=== PATIENT | female | born 1995 | race Caucasian/White ===

== ENCOUNTER 2017-08-08 20:45 | Observation (INO) | payer OTHER ==
[2017-08-08 21:02] VITALS: BMI 41.8
--- NOTE | 2017-08-08 21:31 | DR.GENAD ---
HPI - PCP Primary Care Physician: JOSE RIVERS - Complaint/Symptoms Chief Complaint Doctors Comments: Patient states she passed out x2 at home just prior to coming to the emergency room with her blood pressure being elevated with nausea and headache. States she passed out in shower and again afterwards when she was trying to go to her room. States she has been laying around all day and had episode diarrhea but denies cold, cough, fever or chills. States she has a headache earlier today. States they took her blood pressure and it was low normal lying down but dropped to 80/50 when standing. States she is a patient of Dr. Rivers. Chief Complaint:: PT PASSED OUT IN SHOWER; PT C/O BEING N/V ALL DAY; NO ENERGY; HR IS HIGH (128BPM) AND BP IS LOW AT HOME (72/43) Self Treatment fo Chief Complaint: IBUPROFEN FOR HEADACHE;. IMMODIUM FOR DIAHRRHEA. ZOFRAN - Nurses notes reviewed Nurses Notes Review: Yes - Source History Provided: Patient - Mode of Arrival Mode of Arrival: Ambulatory - Timing Onset of Chief Complaint: 08/08/17 Came on: Gradually - Duration Duration: Constant How lon Duration: Days - Location Location: headache - Severity Severity: Mild - Modifying Factors Worsens:: nothing Improves:: nothing PMH - PMH Past Medical History: Yes Past Medical History: Migraines, Hypertension Past Surgical History: No - Family History History of Family Medical Conditions: No - Social History Alcohol Use: None Do you use any recreational Drugs:: No Lives With: Family Lives Where: Home - infectious screening In the last 2 months have you had wt loss of >10#?: NO Have you had fever, night sweats or hemotysis?: No Have you traveled outside the country in the last 6 months?: No Isolation: Standard ROS - Review of Systems Constitutional: No Symptoms Reported, Weakness, Loss of Appetite. negative: See HPI, Chills, Diaphoresis, Fever, Malaise, Irritable, Fatigue, Other Eyes: No Symptoms Reported ENTM: No Symptoms Reported Respiratoy: No Symptoms Reported. negative: See HPI, Productive Cough, Non- Productive Cough, Moist Cough, Dry Cough, Hacking Cough, Barking Cough, Brassy Cough, Orthopnea, Short of Breath, Stridor, Wheezing, Hemoptysis, Other Cardiovascular: No Symptoms Reported, Palpitations, Syncope. negative: See HPI , Chest Pain, Edema, Cyanosis, Skin Mottling, Other Gastrointestinal/Abdominal: No Symptoms Reported, Diarrhea, Nausea. negative: See HPI, Abdominal Pain, Constipation, Vomiting, Food Intolerance, Other Genitourinary: No Symptoms Reported. negative: See HPI, Discharge, Dysuria, Frequency, Hematuria, Pain, Bleeding, Other Neurological: No Symptoms Reported, Headache, Weakness. negative: See HPI, Anxiety, Depressed, Emotional Problems, Numbness, Paresthesia, Pre-existing Deficit, Seizure, Tingling, Tremors, Dizziness, Problems Walking, Speech Problem , Other Musculoskeletal: No Symptoms Reported Integumentary: No Symptoms Reported Hematologic/Lymphatic: No Symptoms Reported Endocrine: No Symptoms Reported Psychiatric: No Symptoms Reported PE - Vital Signs Vitals: Temperature 99.0 F Pulse Rate [Standing] 142 Pulse Rate [Sitting] 135 Pulse Rate [Lying] 109 Pulse Rate 141 Respiratory Rate 20 Blood Pressure [Standing] 116/80 Blood Pressure [Sitting] 118/81 Blood Pressure [Lying] 122/70 Blood Pressure 125/87 O2 Sat by Pulse Oximetry 99 - General Limitations: No Limitations General Appearance: Alert, In No Apparent Distress - Head Head Exam: Normal Inspection, Atraumatic, Normocephalic - Eyes Eye exam: Normal Appearance, PERRL, EOMI. negative: Scleral Icterus, Conjunctival Injection, Nystagmus, Miosis, Mydrasis, Periorbital Swelling, Periorbital Tenderness, Other - ENT ENT Exam: Normal Exam, Normal Oropharynx, Normal External Ear Exam, Mucous Membranes Moist, TM's Normal Bilaterally External Ear Exam: Normal External Inspection TM/Canal Exam: Bilateral Normal Nose Exam: Normal Nose Exam Mouth Exam: Normal Inspection Throat Exam: Normal Inspection. negative: Tonsillar Erythema, Tonsillomegaly, Tonsillar Exudate, R Peritonsillar Mass, L Peritonsillar Mass, Muffled Voice, Other - Neck Neck Exam: Normal Inspection, Full ROM, Trachea Midline. negative: Tenderness, Meningismus, Lymphadenopathy, Thyromegaly, Other - Chest Chest Inspection: Normal Inspection, Symmetric Chest Wall Rise. negative: Tenderness, Rash, Abscess, Other - Respiratory Respiratory Exam: Normal Lung Sounds Bilat. negative: Accessory Muscle Use, Chest Wall Tenderness, Prolonged Expiratory Phase, Respiratory Distress, Stridor , Other Respiratory Exam: Bilateral Clear to Auscultation - Cardiovascular Cardiovascular Exam: Regular Rate, Normal Rhythm, Tachycardia, Normal Heart Sounds. negative: Bradycardia, Irregular Rhythm, Systolic Murmur, Diastolic Murmur, Rubs, Gallop, Clicks, JVD, +S1, +S2, +S3, +S4, Other - Abdominal Exam Abdominal Exam: Normal Inspection, Normal Bowel Sounds, Soft. negative: Distention, Tenderness, Guarding, Rebound, Rigidity, Dimnished Bowel Sounds, Hyperactive Bowel Sounds, Hypoactive Bowel Sounds, Organomegaly, Trauma, Incision, Ascites, Mass, Bruit, Pulsatile Mass, Hernia, Other Abdominal Tenderness: negative: RUQ, RLQ, LUQ, LLQ, Epigastrium, Suprapubic, Diffuse, Mild, Moderate, Severe, Other - Extremities Extremities Exam: Normal Inspection, Full ROM, Normal Capillary Refill. negative: Tenderness, Edema, Joint Swelling, Calf Tenderness, Other - Back Back Exam: Normal Inspection, Full ROM. negative: Tenderness, (R) CVA Tenderness, (L) CVA Tenderness, Muscle Spasm, Paraspinal Tenderness, Vertebral Tenderness, Rashes, (R) Sciatic Notch Tenderness, (L) Sciatic Notch Tendern, (R ) Straight Leg Raise, (L) Straight Leg Raise, Other - Neurologic Neurological Exam: Alert, Oriented X3, CN II-XII Intact, Reflexes Normal. negative: Normal Gait (gait not tested) - Psychiatric Psychiatric Exam: Normal Affect, Normal Mood. negative: Depressed, Agitated, Anxious, Flat Affect, Manic, Homicidal Ideation, Suicidal Ideation, Other - Skin Skin Exam: Warm, Dry, Intact, Normal Color. negative: Rash, Cyanosis, Diaphoresis, Erythema, Pallor, Mottled, Other Course - Reevaluation 1st: Improved - Consultation Called: 00:55 Call Returned: 00:55 (Dr. Patel to admit) - Education/Counseling Education/Counseling: Patient, Family Educated On: Treatment, Diagnosis, Needs for Follow Up ROR - Labs Reviewed Laboratory Results Reviewed?: Yes (All labs and x-ray results reviewed and discussed with patient and mother) Result Diagrams: 08/08/17 22:15 08/08/17 22:15 Laboratory: WBC 8.3 X10^3/uL (3.6-10.0) 08/08/17 22:15 RBC 4.65 X10^6/uL (3.5-5.4) 08/08/17 22:15 Hgb 13.8 g/dL (12.0-16.0) 08/08/17 22:15 Hct 40.1 % (36.0-47.0) 08/08/17 22:15 MCV 86.1 fL (80.0-100.0) 08/08/17 22:15 MCH 29.7 pg (27.0-34.0) 08/08/17 22:15 MCHC 34.4 g/dL (33.0-35.0) 08/08/17 22:15 RDW 14.0 % (11.6-16.5) 08/08/17 22:15 Plt Count 342 X10^3/uL (150.0-450.0) 08/08/17:15 MPV 7.5 fL (7.4-11.0) 08/08/17 22:15 Neut % (Auto) 89.7 % (42.0-75.0) H 08/08/17 22:15 Lymph % (Auto) 7.7 % (21.0-51.0) L 08/08/17 22:15 [place] % (Auto) 2.3 % (0.0-13.0) 08/08/17 22:15 Eos % (Auto) 0.0 % (0.9-2.9) L 08/08/17:15 Baso % (Auto) 0.3 % (0.2-1.0) 08/08/17 22:15 Neut # (Auto) 7.4 x10^3/uL (2.2-4.8) H 08/08/17 22:15 Lymph # (Auto) 0.6 X10^3/uL (1.3-2.9) L 08/08/17 22:15 [place] # (Auto) 0.2 x10^3/uL (0.3-0.8) L 08/08/17 22:15 Eos # (Auto) 0.0 x10^3/uL (0.0-0.2) 08/08/17 22:15 Baso # (Auto) 0.0 X10^3/uL (0.0-0.1) 08/08/17:15 Absolute Nucleated RBC 0.0 /100WBC 08/08/17 22:15 INR Target Range - 08/08/17 22:15 INR 1.09 (0.8-1.3) 08/08/17 22:15 APTT 28.1 SECONDS (22.9-36.5) 08/08/17 22:15 PTT Comment - 08/08/17 22:15 D-Dimer 1670 ng/mL (0-400) H* 08/08/17 22:15 Sodium 139 mmol/L (136-145) 08/08/17 22:15 Corrected Sodium 139 mmol/L (136-145) 08/08/17 22:15 Potassium 4.0 mmol/L (3.5-5.1) 08/08/17 22:15 Chloride 103 mmol/L (98-107) 08/08/17 22:15 Carbon Dioxide 28.0 mmol/L (21-32) 08/08/17 22:15 BUN 7 mg/dL (7-18) 08/08/17 22:15 Creatinine 0.87 mg/dL (0.55-1.02) 08/08/17 22:15 Est GFR (MDRD) Af Amer > 60 (>60) 08/08/17 22:15 Est GFR (MDRD) Non-Af > 60 (>60) 08/08/17 22:15 Glucose 115 mg/dL (65-99) H 08/08/17 22:15 Calcium 8.4 mg/dL (8.5-10.1) L 08/08/17 22:15 Corrected Calcium TNP 08/08/17 22:15 Magnesium 1.5 mg/dL (1.7-2.9) L 08/08/17 22:15 Total Bilirubin 0.50 mg/dL (0.2-1.0) 08/08/17 22:15 AST 15 Units/L (15-37) 08/08/17 22:15 ALT 42 Units/L (12-78) 08/08/17 22:15 Alkaline Phosphatase 84 Units/L (46-116) 08/08/17 22:15 Creatine Kinase 24 Units/L (26-192) L 08/08/17 22:15 CK-MB (CK-2) < 1.0 ng/mL (0-4.0) 08/08/17 22:15 CK/CKMB % Calc 4.2 % (<4) 08/08/17 22:15 Troponin I < 0.02 ng/mL (0-1.5) 08/08/17 22:15 Total Protein 7.9 g/dL (6.4-8.2) 08/08/17 22:15 Albumin 3.4 g/dL (3.4-5.0) 08/08/17 22: Globulin 4.5 g/dL (2.5-4.5) 08/08/17 22: Albumin/Globulin Ratio 0.8 Ratio (1.1-2.1) L 08/08/17 22:15 Thyroxine (T4) 10.3 ug/dL (4.7-13.3) 08/08/17 22: TSH 3rd Generation 1.326 uIU/mL (0.358-3.74) 08/08/17 22:15 HCG, Qual Negative <10 mIU/mL 08/08/17 22:15 Specimen Type Clean catch urine 08/08/17 22:35 Urine Color Yellow (YELLOW) 08/08/17 22:35 Urine Appearance Clear (CLEAR) 08/08/17 22:35 Urine pH 6.0 (5.0 - 8.0) 08/08/17 22:35 Ur Specific [place] 1.015 (1.000-1.030) 08/08/17 22:35 Urine Protein Negative (NEGATIVE) 08/08/17 22:35 Urine Glucose (UA) Negative (NEGATIVE) 08/08/17 22:35 Urine Ketones Negative (NEGATIVE) 08/08/17 22:35 Urine Occult Blood Negative (NEGATIVE) 08/08/17 22:35 Urine Nitrite Negative (NEGATIVE) 08/08/17 22:35 Urine Bilirubin Negative (NEGATIVE) 08/08/17 22:35 Urine Urobilinogen 1+ (NORMAL) 08/08/17 22:35 Ur Leukocyte Esterase 1+ (NEGATIVE) 08/08/17 22:35 Urine RBC 0-2 /HPF (NONE SEEN) 08/08/17 22:35 Urine WBC 0-2 /HPF (NONE SEEN) 08/08/17 22:35 Ur Squamous Epith Cells Few /HPF (NEGATIVE) 08/08/17 22:35 Urine Bacteria Negative /HPF (NEGATIVE) 08/08/17 22:35 Ur Culture Indicated? No/not indicated 08/08/17 22:35 - Other Results Comments: CXR: No acute cardiopulmonary abnormality. - XRAY XRAY Interpreted by: Radiologist (CT brain: No acute intracranial abnormality) XRAY Findings: CTA chest: No PTE or acute chest process. - EKG Rate: 132 [place]: Normal Rhythm: NSR, ST Block: None Hypertrophy: None ST: Normal, Nonsp - Diagnosis Discharge Problem: Sinus tachycardia, Dehydration symptoms, Hyperglycemia, abnormal d-dimer Syncope Qualifiers: Syncope type: unspecified Qualified Code(s): R55 - Syncope and collapse - Discharge Plan Disposition: ADMITTED INPATIENT Condition: Stable - Follow ups/Referrals Follow ups/Referrals: Jose Rivers [Primary Care Provider] - 3 days - Instructions
[2017-08-08] MEDS: NS 1000 ML 1,000 ML IV SCH (21:37)
--- NOTE | 2017-08-08 21:59 | RAD ---
HISTORY: Passed out, nausea and vomiting, low blood pressure Study: Single view chest Comparison:None Findings: Single portable upright view is submitted. Lung volumes are reduced. No infiltrate, effusion or pneum othorax identified. The cardiac and mediastinal contours are within normal limits. The soft tissues are unremarkable. IMPRESSION: 1. No acute cardiopulmonary abnormality. Reported By:
--- NOTE | 2017-08-08 22:22 | CT ---
HISTORY: Passed out, nausea and vomiting, low blood pressure Study: CT brain without contrast Comparison: None Technique: Multiple axial images of the brain were obtained from the skull base to the vertex without administra tion of IV contrast. Dose reduction techniques including Automated Exposure Control (AEC) and adjust ment of mA and kV were utilized. Findings: The brain parenchyma is within normal limits for patient's age. No evidence of acute hemorrhage, mid line shift, mass effect or abnormal extra-axial fluid collection. The ventricular system is symmetri c and nondilated. The soft tissues and osseous structures are unremarkable. The visualized paranasal sinuses are clear. IMPRESSION: 1.No acute intracranial abnormality. Reported By:
[2017-08-08 22:36] LABS: MONOCYTES # (AUTO) 0.2 x10^3/uL (0.3-0.8); NEUTROPHILS # (AUTO) 7.4 x10^3/uL (2.2-4.8); RED BLOOD COUNT 4.65 X10^6/uL (3.5-5.4)
[2017-08-08 22:42] LABS: BILIRUBIN,URINE NEGATIVE (NEGATIVE); BLOOD/HEMOGLOBIN,URINE NEGATIVE (NEGATIVE); GLUCOSE, URINE NEGATIVE (NEGATIVE); KETONES,URINE NEGATIVE (NEGATIVE); LEUKOCYTE ESTERASE ,URINE 1+ (NEGATIVE); NITRITES,URINE NEGATIVE (NEGATIVE); PROTEIN,URINE NEGATIVE (NEGATIVE); UROBILINOGEN,URINE 1+ (NORMAL)
[2017-08-08 22:45] LABS: SERUM PREGNANCY TEST, QUAL NEGATIVE <10 mIU/mL
[2017-08-08 22:54] LABS: APPEARANCE,URINE CLEAR (CLEAR); BACTERIA,URINE NEGATIVE /HPF (NEGATIVE); COLOR,URINE YELLOW (YELLOW); RBC,URINE 0-2 /HPF (NONE SEEN); SQUAMOUS EPITHELIAL CELL,UR FEW /HPF (NEGATIVE)
[2017-08-08 22:59] LABS: BLOOD UREA NITROGEN 7 mg/dL (7-18); CALCIUM 8.4 mg/dL (8.5-10.1); CHLORIDE 103 mmol/L (98-107); COR NA(FOR HYPERGLY) 139 mmol/L (136-145); CREATININE 0.87 mg/dL (0.55-1.02); SODIUM 139 mmol/L (136-145); TROPONIN I < 0.02 ng/mL (0-1.5); eGFR BLACK RACES > 60 (>60); eGFR NON BLACK RACES > 60 (>60)
[2017-08-08 23:01] LABS: ALANINE AMINOTRANSFERASE 42 Units/L (12-78); ALBUMIN 3.4 g/dL (3.4-5.0); ALKALINE PHOSPHATASE 84 Units/L (46-116); ASPARTATE AMINO TRANSFERASE 15 Units/L (15-37); CKMB % 4.2 % (<4); CREATINE KINASE 24 Units/L (26-192); CREATINE KINASE MB < 1.0 ng/mL (0-4.0); MAGNESIUM 1.5 mg/dL (1.7-2.9); TOTAL PROTEIN 7.9 g/dL (6.4-8.2)
[2017-08-08 23:03] LABS: T4 (THYROXINE) 10.3 ug/dL (4.7-13.3); TSH (3RD GENERATION) 1.326 uIU/mL (0.358-3.74)
[2017-08-08 23:04] LABS: BASOPHILS % (AUTO) 0.3 % (0.2-1.0); HEMATOCRIT 40.1 % (36.0-47.0); HEMOGLOBIN 13.8 g/dL (12.0-16.0); LYMPHOCYTES # (AUTO) 0.6 X10^3/uL (1.3-2.9); LYMPHOCYTES % (AUTO) 7.7 % (21.0-51.0); MEAN CORPUSCULAR HEMOGLOBIN 29.7 pg (27.0-34.0); MEAN CORPUSCULAR HGB CONC 34.4 g/dL (33.0-35.0); MEAN CORPUSCULAR VOLUME 86.1 fL (80.0-100.0); MEAN PLATELET VOLUME 7.5 fL (7.4-11.0); MONOCYTES % (AUTO) 2.3 % (0.0-13.0); NEUTROPHILS % (AUTO) 89.7 % (42.0-75.0); PLATELET COUNT 342 X10^3/uL (150.0-450.0); WHITE BLOOD COUNT 8.3 X10^3/uL (3.6-10.0)
[2017-08-08] MEDS ORDERED: NS 100 ML IV 100 ML IV ONE (23:39)
[2017-08-09] MEDS: NS 1000 ML 1,000 ML IV SCH ×2 (00:14→12:03)
--- NOTE | 2017-08-09 00:20 | CT ---
CTA chest Indication: Elevated D-dimer Technique: Helical CT images of the chest were obtained with IV contrast. Reformatted images in the c oronal and sagittal planes and 3D MIP images were also generated for review. Comparison: Chest radiograph 08/08/2017 Findings: Contrast bolus timing is adequate for detection of PTE. No pulmonary thromboembolus is iden tified. There is no pulmonary arterial dilatation or evidence of right heart strain. The heart is nor mal in size without pericardial effusion. The thoracic aorta and proximal great vessels are normal in contour and caliber. The central airways are patent. There is no lymphadenopathy. The lungs are candis r without focal consolidation. No pleural effusion or pneumothorax is identified. Limited arterial phase images of the upper abdomen demonstrate no acute abnormality. No aggressive os seous lesions are identified. Impression: No PTE or acute chest process. Reported By:
[2017-08-09] MEDS ORDERED: ZOFRAN INJ 4 MG VIAL IVP PRN (01:06)
[2017-08-09] MEDS: LOVENOX INJ 40 MG SYR SC SCH ×3 (01:46→14:27)
[2017-08-09] MEDS: PROTONIX INJ 40 MG VIAL IVP SCH ×3 (01:46→14:27)
[2017-08-09] MEDS ORDERED: NS 1000 ML 1,000 ML IV SCH (02:00)
[2017-08-09] MEDS ORDERED: POTASSIUM CHL 40 MEQ/NS 0.45% 500 ML IV PRN (02:18)
[2017-08-09] MEDS ORDERED: POTASSIUM CHLORIDE LIQ 20 MEQ UDC PO PRN (02:18)
[2017-08-09] MEDS ORDERED: POTASSIUM CHL 60 MEQ/NS 0.45% 500 ML IV PRN (02:18)
[2017-08-09] MEDS ORDERED: K-RIDER 10 MEQ/NS 100 ML 10 MEQ/100 ML BAG IV PRN (02:18)
[2017-08-09] MEDS ORDERED: K-LYTE EFFERVESCENT PO PRN (02:18)
[2017-08-09] MEDS: MAGNESIUM SULFATE 1 GM/100 mL PREMIX 1 GM/100 ML BAG IV PRN ×2 (02:30→03:34)
[2017-08-09 06:10] LABS: CHOL/HDL RATIO 4.2 (0.0-5.0)
[2017-08-09 06:38] LABS: BASOPHILS % (AUTO) 0.3 % (0.2-1.0); HEMATOCRIT 34.4 % (36.0-47.0); HEMOGLOBIN 11.9 g/dL (12.0-16.0); LYMPHOCYTES # (AUTO) 0.8 X10^3/uL (1.3-2.9); LYMPHOCYTES % (AUTO) 18.6 % (21.0-51.0); MEAN CORPUSCULAR HEMOGLOBIN 29.7 pg (27.0-34.0); MEAN CORPUSCULAR HGB CONC 34.7 g/dL (33.0-35.0); MEAN CORPUSCULAR VOLUME 85.7 fL (80.0-100.0); MEAN PLATELET VOLUME 7.5 fL (7.4-11.0); MONOCYTES # (AUTO) 0.2 x10^3/uL (0.3-0.8); MONOCYTES % (AUTO) 5.2 % (0.0-13.0); NEUTROPHILS # (AUTO) 3.4 x10^3/uL (2.2-4.8); NEUTROPHILS % (AUTO) 75.9 % (42.0-75.0); PLATELET COUNT 270 X10^3/uL (150.0-450.0); RED BLOOD COUNT 4.02 X10^6/uL (3.5-5.4); RED CELL DISTRIBUTION WIDTH 13.7 % (11.6-16.5); WHITE BLOOD COUNT 4.4 X10^3/uL (3.6-10.0)
[2017-08-09 06:46] LABS: ALANINE AMINOTRANSFERASE 33 Units/L (12-78); ALBUMIN 2.9 g/dL (3.4-5.0); ALKALINE PHOSPHATASE 69 Units/L (46-116); ASPARTATE AMINO TRANSFERASE 12 Units/L (15-37); BLOOD UREA NITROGEN 5 mg/dL (7-18); CALCIUM 7.9 mg/dL (8.5-10.1); CARBON DIOXIDE 25.6 mmol/L (21-32); CHLORIDE 108 mmol/L (98-107); COR CA(FOR HYPOALB) 8.8 mg/dL (8.5-10.1); CREATININE 0.67 mg/dL (0.55-1.02); SODIUM 142 mmol/L (136-145); eGFR BLACK RACES > 60 (>60); eGFR NON BLACK RACES > 60 (>60)
[2017-08-09 07:52] LABS: CREATINE KINASE 27 Units/L (26-192); CREATINE KINASE MB < 1.0 ng/mL (0-4.0); TROPONIN I < 0.02 ng/mL (0-1.5)
[2017-08-09 08:16] LABS: CKMB % 3.7 % (<4)
[2017-08-09 13:41] LABS: CREATINE KINASE 28 Units/L (26-192); CREATINE KINASE MB < 1.0 ng/mL (0-4.0); TROPONIN I < 0.02 ng/mL (0-1.5)
[2017-08-09 13:50] LABS: CKMB % 3.6 % (<4)
[2017-08-09] MEDS: LOPRESSOR TAB 25 MG PO SCH ×2 (14:27→22:05)
[2017-08-10] MEDS: NS 1000 ML 1,000 ML IV SCH (03:14)
[2017-08-10 06:23] LABS: BASOPHILS # (AUTO) 0.1 X10^3/uL (0.0-0.1); BASOPHILS % (AUTO) 2.3 % (0.2-1.0); EOSINOPHILS # (AUTO) 0.1 x10^3/uL (0.0-0.2); EOSINOPHILS % (AUTO) 2.8 % (0.9-2.9); HEMATOCRIT 33.5 % (36.0-47.0); HEMOGLOBIN 11.5 g/dL (12.0-16.0); LYMPHOCYTES # (AUTO) 1.4 X10^3/uL (1.3-2.9); LYMPHOCYTES % (AUTO) 33.9 % (21.0-51.0); MEAN CORPUSCULAR HEMOGLOBIN 29.5 pg (27.0-34.0); MEAN CORPUSCULAR HGB CONC 34.4 g/dL (33.0-35.0); MEAN CORPUSCULAR VOLUME 85.8 fL (80.0-100.0); MONOCYTES # (AUTO) 0.4 x10^3/uL (0.3-0.8); MONOCYTES % (AUTO) 10.5 % (0.0-13.0); NEUTROPHILS # (AUTO) 2.1 x10^3/uL (2.2-4.8); NEUTROPHILS % (AUTO) 50.5 % (42.0-75.0); PLATELET COUNT 246 X10^3/uL (150.0-450.0); RED BLOOD COUNT 3.91 X10^6/uL (3.5-5.4); RED CELL DISTRIBUTION WIDTH 13.8 % (11.6-16.5); WHITE BLOOD COUNT 4.2 X10^3/uL (3.6-10.0)
[2017-08-10 06:51] LABS: ALANINE AMINOTRANSFERASE 37 Units/L (12-78); ALBUMIN 2.6 g/dL (3.4-5.0); ALKALINE PHOSPHATASE 65 Units/L (46-116); ASPARTATE AMINO TRANSFERASE 17 Units/L (15-37); BLOOD UREA NITROGEN 5 mg/dL (7-18); CALCIUM 7.8 mg/dL (8.5-10.1); CARBON DIOXIDE 26.3 mmol/L (21-32); CHLORIDE 109 mmol/L (98-107); COR CA(FOR HYPOALB) 8.9 mg/dL (8.5-10.1); CREATININE 0.75 mg/dL (0.55-1.02); SODIUM 142 mmol/L (136-145); TOTAL PROTEIN 6.1 g/dL (6.4-8.2); eGFR BLACK RACES > 60 (>60); eGFR NON BLACK RACES > 60 (>60)
[2017-08-10 08:00] VITALS: BP 128/81
[2017-08-10] MEDS: LOPRESSOR TAB 25 MG PO SCH (08:45)
[2017-08-10] MEDS: LOVENOX INJ 40 MG SYR SC SCH (08:46)
[2017-08-10] MEDS: PROTONIX INJ 40 MG VIAL IVP SCH (08:46)
== END 2017-08-10 10:40 | disposition home or self-care (01) ==
LOC: ER 20:45 → MED/SURG 08-09 01:13
PROVIDERS: ADMIT Internal Medicine; ATTEND Internal Medicine
DX: R55 Syncope and collapse (principal); R00.0 Tachycardia, unspecified; R79.1 Abnormal coagulation profile; E86.0 Dehydration; I95.9 Hypotension, unspecified; Z82.49 Family history of ischemic heart disease and other diseases of the circulatory system
CPT/HCPCS: 36415; 70450; 71045; 71275; 80053; 80061; 81001; 82550; 82553; 83605; 83735; 84436; 84443; 84484; 84703; 85025; 85378; 85610; 85730; 93005; 94760; 96365; 96367; 99218; 99284; A4216; A4222; C9113; G0378; J1650

== ENCOUNTER 2020-10-11 17:12 | Observation (INO) ==
[2020-10-11] MEDS ORDERED: PEPCID TAB 40 MG PO PRN (21:01)
[2020-10-11] MEDS ORDERED: NS 1000 ML 1,000 ML ONE (21:10)
[2020-10-11] MEDS: SINGULAIR TAB 10 MG PO SCH (21:26)
[2020-10-11] MEDS: ATARAX TAB 25 MG PO SCH (21:26)
[2020-10-11] MEDS: NS 1000 ML 1,000 ML IV SCH (21:26)
[2020-10-11] MEDS: SOLU-Medrol 40 MG VIAL IVP SCH (21:27)
[2020-10-11 21:38] LABS: BASOPHILS # (AUTO) 0.1 X10^3/uL (0.0-0.1); BASOPHILS % (AUTO) 0.9 % (0.2-1.0); EOSINOPHILS % (AUTO) 6.4 % (0.9-2.9); HEMOGLOBIN 13.6 g/dL (12.0-16.0); LYMPHOCYTES # (AUTO) 0.7 X10^3/uL (1.3-2.9); LYMPHOCYTES % (AUTO) 4.5 % (21.0-51.0); MEAN CORPUSCULAR HEMOGLOBIN 31.5 pg (27.0-34.0); MEAN CORPUSCULAR VOLUME 92.7 fL (80.0-100.0); MEAN PLATELET VOLUME 7.1 fL (7.4-11.0); MONOCYTES # (AUTO) 0.9 x10^3/uL (0.3-0.8); MONOCYTES % (AUTO) 5.6 % (0.0-13.0); NEUTROPHILS # (AUTO) 13.2 x10^3/uL (2.2-4.8); NEUTROPHILS % (AUTO) 82.6 % (42.0-75.0); PLATELET COUNT 344 X10^3/uL (150.0-450.0); RED BLOOD COUNT 4.31 X10^6/uL (3.5-5.4); RED CELL DISTRIBUTION WIDTH 14.1 % (11.6-16.5)
[2020-10-11 21:42] LABS: ERYTHROCYTE SEDIMENTATION RATE 6 MM/HOUR (0-20)
[2020-10-11 21:56] LABS: ALANINE AMINOTRANSFERASE 46 Units/L (12-78); ALBUMIN 2.9 g/dL (3.4-5.0); ALKALINE PHOSPHATASE 54 Units/L (46-116); ASPARTATE AMINO TRANSFERASE 9 Units/L (15-37); BLOOD UREA NITROGEN 21 mg/dL (7-18); CALCIUM 8.3 mg/dL (8.5-10.1); CARBON DIOXIDE 26.4 mmol/L (21-32); CHLORIDE 107 mmol/L (98-107); COR CA(FOR HYPOALB) 9.2 mg/dL (8.5-10.1); COR NA(FOR HYPERGLY) 142 mmol/L (136-145); CREATININE 0.83 mg/dL (0.55-1.02); SODIUM 142 mmol/L (136-145); TOTAL PROTEIN 6.5 g/dL (6.4-8.2); eGFR NON BLACK RACES > 60 (>60)
[2020-10-11 22:18] LABS: PLATELET MORPHOLOGY COMMENT NORMAL (NORMAL)
[2020-10-12] MEDS: TEMOVATE CREAM EXT SCH ×3 (04:31→21:03)
[2020-10-12] MEDS: SOLU-Medrol 40 MG VIAL IVP SCH ×3 (05:20→21:03)
[2020-10-12] MEDS: ATARAX TAB 25 MG PO SCH ×3 (05:20→21:03)
[2020-10-12 06:48] LABS: ALANINE AMINOTRANSFERASE 43 Units/L (12-78); ALKALINE PHOSPHATASE 52 Units/L (46-116); ASPARTATE AMINO TRANSFERASE 9 Units/L (15-37); BLOOD UREA NITROGEN 16 mg/dL (7-18); CALCIUM 8.8 mg/dL (8.5-10.1); CARBON DIOXIDE 27.9 mmol/L (21-32); CHLORIDE 106 mmol/L (98-107); COR CA(FOR HYPOALB) 9.6 mg/dL (8.5-10.1); COR NA(FOR HYPERGLY) 141 mmol/L (136-145); CREATININE 0.66 mg/dL (0.55-1.02); SODIUM 141 mmol/L (136-145); TOTAL PROTEIN 6.4 g/dL (6.4-8.2); eGFR NON BLACK RACES > 60 (>60)
[2020-10-12 07:52] VITALS: BMI 43.1
[2020-10-12 09:08] LABS: BASOPHILS % (AUTO) 0.3 % (0.2-1.0); EOSINOPHILS % (AUTO) 0.1 % (0.9-2.9); HEMATOCRIT 40.9 % (36.0-47.0); HEMOGLOBIN 13.7 g/dL (12.0-16.0); LYMPHOCYTES # (AUTO) 0.8 X10^3/uL (1.3-2.9); LYMPHOCYTES % (AUTO) 5.8 % (21.0-51.0); MEAN CORPUSCULAR HEMOGLOBIN 31.2 pg (27.0-34.0); MEAN CORPUSCULAR HGB CONC 33.4 g/dL (33.0-35.0); MEAN CORPUSCULAR VOLUME 93.3 fL (80.0-100.0); MONOCYTES # (AUTO) 0.3 x10^3/uL (0.3-0.8); MONOCYTES % (AUTO) 2.2 % (0.0-13.0); NEUTROPHILS # (AUTO) 12.9 x10^3/uL (2.2-4.8); NEUTROPHILS % (AUTO) 91.6 % (42.0-75.0); PLATELET COUNT 303 X10^3/uL (150.0-450.0); RED BLOOD COUNT 4.39 X10^6/uL (3.5-5.4); RED CELL DISTRIBUTION WIDTH 14.2 % (11.6-16.5); WHITE BLOOD COUNT 14.1 X10^3/uL (3.6-10.0)
[2020-10-12 09:26] LABS: BAND NEUTROPHILS % 2 % (0-10); PLATELET MORPHOLOGY COMMENT NORMAL (NORMAL)
[2020-10-12] MEDS: NS 1000 ML 1,000 ML IV SCH ×2 (10:23→16:09)
[2020-10-12 10:50] LABS: RHEUMATOID FACTOR NEGATIVE (NEGATIVE)
--- NOTE | 2020-10-12 14:53 | DR.UPDATE ---
H&P Update History and Physical Update: History and Physical reviewed and patient examined. Changes noted: Yes with the following: PATIENT WAS ADMITTED FOR WHOLE BODY RASH, FAILED OUTPATIENT TREATMENT. SYMPTOMS STARTED APPROXIMATELY THREE WEEKS AGO. SHE HAS SEEN DERMATOLOGY AND HAS ALSO HAD A BIOPSY, HOWEVER, REPORT IS NOT BACK YET. SHE COMPLAINS OF SEVERE ITCHING. SHE WAS ADMITTED FOR FURTHER EVALUATION AND TREATMENT. SHE WAS STARTED ON NORMAL SALINE AT 50 ML/HR, SOLU- MEDROL 80MG IV Q8H, TEMOVATE CREAM BID, PEPCID 40MG PO BID, HYDROXYZINE 25MG PO Q7H, SINGULAIR 10MG PO HS. WE WILL OBTAIN LABS AND SET UP BLOOD CULTURES. OTHERWISE, WE WILL FOLLOW UP WITH AM LABS AND CONTINUE TO MONITOR. H&P Reviewed: Yes Patient was examined?: Yes
[2020-10-12] MEDS ORDERED: ZANAFLEX PO PRN (15:36)
[2020-10-12] MEDS: ZESTRIL TAB 5 MG PO SCH ×2 (16:04→20:31)
[2020-10-12] MEDS: PEPCID TAB 40 MG PO SCH ×2 (16:05→20:31)
[2020-10-12] MEDS: SINGULAIR TAB 10 MG PO SCH (20:31)
[2020-10-12] MEDS: PROPRANOLOL 80 MG PO SCH (23:41)
[2020-10-13 04:53] LABS: BASOPHILS # (AUTO) 0.1 X10^3/uL (0.0-0.1); BASOPHILS % (AUTO) 0.4 % (0.2-1.0); EOSINOPHILS % (AUTO) 0.1 % (0.9-2.9); HEMATOCRIT 38.2 % (36.0-47.0); HEMOGLOBIN 12.9 g/dL (12.0-16.0); LYMPHOCYTES # (AUTO) 0.9 X10^3/uL (1.3-2.9); LYMPHOCYTES % (AUTO) 7.4 % (21.0-51.0); MEAN CORPUSCULAR HEMOGLOBIN 31.3 pg (27.0-34.0); MEAN CORPUSCULAR HGB CONC 33.9 g/dL (33.0-35.0); MEAN CORPUSCULAR VOLUME 92.4 fL (80.0-100.0); MEAN PLATELET VOLUME 7.6 fL (7.4-11.0); MONOCYTES # (AUTO) 0.7 x10^3/uL (0.3-0.8); MONOCYTES % (AUTO) 5.5 % (0.0-13.0); NEUTROPHILS # (AUTO) 10.6 x10^3/uL (2.2-4.8); NEUTROPHILS % (AUTO) 86.6 % (42.0-75.0); PLATELET COUNT 310 X10^3/uL (150.0-450.0); RED BLOOD COUNT 4.13 X10^6/uL (3.5-5.4); RED CELL DISTRIBUTION WIDTH 14.4 % (11.6-16.5); WHITE BLOOD COUNT 12.2 X10^3/uL (3.6-10.0)
[2020-10-13 05:00] LABS: ALANINE AMINOTRANSFERASE 35 Units/L (12-78); ALBUMIN 2.7 g/dL (3.4-5.0); ALKALINE PHOSPHATASE 48 Units/L (46-116); ASPARTATE AMINO TRANSFERASE < 6 Units/L (15-37); BLOOD UREA NITROGEN 17 mg/dL (7-18); CALCIUM 8.4 mg/dL (8.5-10.1); CARBON DIOXIDE 26.1 mmol/L (21-32); CHLORIDE 107 mmol/L (98-107); COR CA(FOR HYPOALB) 9.4 mg/dL (8.5-10.1); COR NA(FOR HYPERGLY) 143 mmol/L (136-145); CREATININE 0.65 mg/dL (0.55-1.02); SODIUM 142 mmol/L (136-145); TOTAL PROTEIN 5.9 g/dL (6.4-8.2); eGFR NON BLACK RACES > 60 (>60)
[2020-10-13] MEDS: ATARAX TAB 25 MG PO SCH ×3 (05:14→20:59)
[2020-10-13] MEDS: SOLU-Medrol 40 MG VIAL IVP SCH ×3 (05:14→20:59)
[2020-10-13] MEDS: DIFLUCAN 200 MG IV PREMIX* 200 MG/100 ML BAG IV SCH (09:38)
[2020-10-13] MEDS: PEPCID TAB 40 MG PO SCH ×2 (09:38→20:57)
[2020-10-13] MEDS: ZESTRIL TAB 5 MG PO SCH ×2 (09:39→20:56)
[2020-10-13] MEDS: NS 1000 ML 1,000 ML IV SCH (09:39)
[2020-10-13] MEDS: TEMOVATE CREAM EXT SCH ×2 (09:40→20:57)
[2020-10-13] MEDS: PROPRANOLOL 80 MG PO SCH (20:57)
[2020-10-13] MEDS: SINGULAIR TAB 10 MG PO SCH (20:57)
[2020-10-14 04:34] LABS: BASOPHILS % (AUTO) 0.3 % (0.2-1.0); EOSINOPHILS % (AUTO) 0.1 % (0.9-2.9); HEMATOCRIT 39.6 % (36.0-47.0); HEMOGLOBIN 13.4 g/dL (12.0-16.0); LYMPHOCYTES # (AUTO) 0.7 X10^3/uL (1.3-2.9); LYMPHOCYTES % (AUTO) 5.6 % (21.0-51.0); MEAN CORPUSCULAR HEMOGLOBIN 31.4 pg (27.0-34.0); MEAN CORPUSCULAR HGB CONC 33.9 g/dL (33.0-35.0); MEAN CORPUSCULAR VOLUME 92.7 fL (80.0-100.0); MEAN PLATELET VOLUME 7.5 fL (7.4-11.0); MONOCYTES # (AUTO) 0.4 x10^3/uL (0.3-0.8); MONOCYTES % (AUTO) 3.7 % (0.0-13.0); NEUTROPHILS # (AUTO) 10.6 x10^3/uL (2.2-4.8); NEUTROPHILS % (AUTO) 90.3 % (42.0-75.0); PLATELET COUNT 327 X10^3/uL (150.0-450.0); RED BLOOD COUNT 4.27 X10^6/uL (3.5-5.4); RED CELL DISTRIBUTION WIDTH 14.4 % (11.6-16.5); WHITE BLOOD COUNT 11.8 X10^3/uL (3.6-10.0)
[2020-10-14 04:44] LABS: ALANINE AMINOTRANSFERASE 38 Units/L (12-78); ALBUMIN 2.8 g/dL (3.4-5.0); ALKALINE PHOSPHATASE 49 Units/L (46-116); ASPARTATE AMINO TRANSFERASE < 6 Units/L (15-37); BLOOD UREA NITROGEN 16 mg/dL (7-18); CALCIUM 8.5 mg/dL (8.5-10.1); CARBON DIOXIDE 28.7 mmol/L (21-32); CHLORIDE 107 mmol/L (98-107); COR CA(FOR HYPOALB) 9.5 mg/dL (8.5-10.1); COR NA(FOR HYPERGLY) 144 mmol/L (136-145); CREATININE 0.67 mg/dL (0.55-1.02); SODIUM 143 mmol/L (136-145); TOTAL PROTEIN 6.2 g/dL (6.4-8.2); eGFR NON BLACK RACES > 60 (>60)
[2020-10-14] MEDS: NS 1000 ML 1,000 ML IV SCH (05:00)
[2020-10-14] MEDS: ATARAX TAB 25 MG PO SCH (05:01)
[2020-10-14] MEDS: SOLU-Medrol 40 MG VIAL IVP SCH (05:01)
[2020-10-14 05:18] LABS: PLATELET MORPHOLOGY COMMENT NORMAL (NORMAL)
[2020-10-14 08:22] VITALS: BP 128/80
[2020-10-14] MEDS: DIFLUCAN 200 MG IV PREMIX* 200 MG/100 ML BAG IV SCH (08:52)
[2020-10-14] MEDS: PEPCID TAB 40 MG PO SCH (08:53)
[2020-10-14] MEDS: ZESTRIL TAB 5 MG PO SCH (08:53)
[2020-10-14] MEDS ORDERED: BETAMETHASONE DIPROPIONATE TOP SCH (11:00)
[2020-10-14] MEDS ORDERED: LOTRISONE TOP SCH (11:00)
[2020-10-14] MEDS ORDERED: CLOTRIMAZOLE TOP SCH (11:00)
[2020-10-14] MEDS ORDERED: DIFLUCAN PO SCH (11:00)
== END 2020-10-14 11:30 | disposition home or self-care (01) ==
LOC: MED/SURG
PROVIDERS: ADMIT Internal Medicine; ATTEND Internal Medicine
DX: L51.1 Stevens-Johnson syndrome; R21 Rash and other nonspecific skin eruption; D72.828 Other elevated white blood cell count